=== PATIENT | male | born 1970 | race Caucasian/White ===

== ENCOUNTER 2022-09-16 13:05 | Emergency (ER) | payer SELFPAY ==
[2022-09-16 13:08] VITALS: BP 129/85; PULSE 99; RESP 16; TEMP 36.4; O2SAT 99; BMI 21.7
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
[2022-09-16] MEDS: KETOROLAC 30 MG/ML VIAL IM (13:22)
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
--- NOTE | 2022-09-16 14:20 | PC.NURSE ---
Applied bacitracin and xeroform gauze.
== END 2022-09-16 14:12 | disposition home or self-care (01) ==
PROVIDERS: Emergency Provider Emergency Medicine
DX: T23.121A Burn of first degree of single right finger (nail) except thumb, initial encounter (principal); W86.8XXA Exposure to other electric current, initial encounter
CPT/HCPCS: 73130; 93005; 93010; 96372; 99283; J1885